=== PATIENT | male | born 1960 | race American Indian/Alaskan Native ===

== ENCOUNTER 2017-10-02 07:00 | Day surgery (SDC) | payer BC ==
[2017-10-02] MEDS ORDERED: NACL 0.9% 1000 ML 1,000 ML IV SCH (08:01)
--- NOTE | 2017-10-02 08:01 | Anesthesia Consultation ---
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
--- NOTE | 2017-10-02 08:01 | Anesthesia Day of Surgery ---
Anesthesia Day of Surgery - Day of Surgery Patient Examined: Yes Patient H&P Reviewed: Yes Patient is NPO: Yes
[2017-10-02] MEDS ORDERED: PEPCID IV NR (08:04)
[2017-10-02] MEDS ORDERED: ANCEF/STERILE WATER 2 GM/20 ML IV NR (09:00)
[2017-10-02] MEDS ORDERED: XYLOCAINE 1% 20 mL ONE (09:40)
[2017-10-02] MEDS ORDERED: MARCAINE 0.25% INFILTRATI ONE ×3 (09:40→10:13)
[2017-10-02] MEDS ORDERED: XYLOCAINE MPF 2% ONE ×2 (09:43→09:46)
[2017-10-02] MEDS ORDERED: VERSED IV ONE (09:43)
[2017-10-02] MEDS ORDERED: DIPRIVAN 10 MG/ML IV ONE ×3 (09:43→10:46)
[2017-10-02] MEDS ORDERED: DILAUDID ONE (09:48)
[2017-10-02] MEDS ORDERED: XYLOCAINE 1%/ EPI 1:100,000 INFILTRATI ONE ×2 (10:13)
--- NOTE | 2017-10-02 11:31 | Short Stay Summary ---
Short Stay Documentation Date of service: 10/02/17 - History Principal diagnosis: multiple soft tissues masses of face and neck H&P: obtained from office - Allergies and Medications Current Medications: Allergies No Known Allergies Allergy (Verified 09/27/17 15:29) Home Medications Medication Instructions Recorded Confirmed Last Taken Type Lisinopril/Hydrochlorothiazide 1 each PO DAILY 08/29/17 10/02/17 10/01/17 09:00 History [Zestoretic 10-12.5 mg Tablet] Verapamil ER [Calan Sr] 180 mg PO DAILY 08/29/17 10/02/17 10/02/17 06:00 History Ibuprofen 800 mg PO Q8H PRN #30 tablet 10/02/17 Unknown Rx Active Medications Cefazolin Sodium (Ancef/Sterile Water 2 Gm/20 Ml) 2 gm IV PREOP NR Stop: 10/02/17 12:00 Famotidine (Pepcid) 20 mg IV PREOP NR Stop: 10/02/17 12:00 Last Admin: 10/02/17 08:34 Dose: 20 mg Sodium Chloride (Nacl 0.9% 1000 Ml) 1,000 mls @ 100 mls/hr IV DIRECT MEG Stop: 10/02/17 23:59 Last Admin: 10/02/17 08:33 Dose: 100 mls/hr - Brief post op/procedure progress note Date of procedure: 10/02/17 Pre-op diagnosis: multiple soft tissue masses face and neck Post-op diagnosis: same Procedure: excision of multiple soft tissue masses head and neck Anesthesia: MAC, local Findings: 4 cysts: 1. Left neck: 2 cm 2. Right neck: 1 cm 3. Right scalp: 2 cm 4. Right face: 2cm Surgeon: WINSOME ALLISON Estimated blood loss: minimal Pathology: list (soft tissue masses (see findings)) Specimen disposition: to lab Condition: stable - Hospital course Hospital course: Patient was observed in the PACU and discharged home when criteria was met. - Disposition Condition at discharge: Good Disposition: - TO HOME OR SELFCARE - Discharge Diagnoses (1) Soft tissue mass Status: Acute Short Stay Discharge Plan Activity: other Diet: regular Wound: open to air, other (Do not submerge incisions in water. May shower tomorrow, do not scrub incisions) Additional Instructions: Call surgeon's office if you have fevers >100.4, pain not controlled with pain medications, drainage/swelling around incisions. Follow up with: NEVIN LIRIANO MD [Primary Care Provider] - 7 Days WINSOME ALLISON DO [Staff Physician] - 7 Days Prescriptions: Ibuprofen 800 mg PO Q8H PRN #30 tablet PRN Reason: Pain
[2017-10-02 13:07] VITALS: BP 141/84
--- NOTE | 2017-10-02 14:45 | Operative Report ---
Operative Report Operative Report: Date of operation: 10/02/2017 Preoperative diagnosis: Multiple soft tissue masses of head and neck Postoperative diagnosis: Multiple cysts of the head and neck Procedure performed: Excision of soft tissue masses of head and neck Surgeon: Sarah Redman DO Anesthesia: Mac, local Findings: 4 cysts Specimen: 1. Left neck: 2 cm 2. Right neck: 1 cm 3. Right scalp: 2 cm 4. Right face: 2cm Estimated blood loss: Less than 10 mL Consultations: None Disposition: Stable to PACU HPI an indication: Patient is a 57-year-old male who presented to the surgical office with complaints of multiple soft tissue masses of his head and neck. The patient elected to have these masses removed because they're becoming larger. All the risks of surgery were discussed with the patient, questions answered, consent was signed. Procedure in detail: The patient was identified in the preoperative area, taken back to the operating room, placed on table in supine position. After anesthesia was induced the left face and neck were prepped and draped in usual sterile fashion and timeout was performed. A mixture of 50/50 1% lidocaine and 0.25% Marcaine was injected in the skin over the intended incision site. A elliptical incision was made in the skin over soft tissue mass using a 15 blade. Dissection was carried down to the skin and subcutaneous tissue using the 15 blade until the cyst wall was encountered. Then using tenotomy scissors , the cyst was circumferentially dissected free from the surrounding tissues. The cyst measured approximately 2 cm and it was passed off the table as a specimen. The wound was irrigated and hemostasis achieved using electrocautery. The deep dermal layer was closed with an interrupted 3-0 Vicryl stitch and the skin was closed using running 4-0 Monocryl subcuticular stitches and skin glue. I then turned my attention to the 3 remaining soft tissue masses on the right side of the head and neck. The right scalp, face and neck were prepped and draped in usual sterile fashion. I first started with the smaller mass on the right neck. Local anesthetic was infiltrated into the skin. A 1 cm incision was made over the mass using a 15 blade. Dissection was carried down through the skin and subcutaneous tissue with the knife and the cyst was then dissected free from the surrounding tissues using tenotomy scissors. The cyst measured 1 cm, and was passed off the table as a specimen. The wound was irrigated and hemostasis achieved. The skin was closed with 4-0 Monocryl subcuticular stitch and skin glue. Next, I removed the cysts of the right face and then the right scalp. Local anesthetic was infiltrated into the skin and an elliptical incision was made in the skin around the central opening of the cyst. The remainder of the dissection was performed in a similar fashion to the other cysts. The cyst of the right face measured 2 cm cyst of the right scalp measured 2 cm. Both wounds were irrigated and hemostasis ensured. The deep dermal layers were closed with 3-0 Vicryl interrupted stitches and the skin was closed with running 4-0 Monocryl subcuticular stitches and skin glue. At the end of the case, all sponge, instrument, sharp counts were correct 2. The patient was awoken from anesthesia, and taken to PACU in stable condition.
== END 2017-10-02 12:50 | disposition home or self-care (01) ==
LOC: OR 07:00
PROVIDERS: ATTEND Surgery
DX: M79.89 Other specified soft tissue disorders (principal); I10 Essential (primary) hypertension; Z87.891 Personal history of nicotine dependence
CPT/HCPCS: 21012; 21552; 36415; 84132; 88304; J1170; J2250; J2704; J7030; 88305; 88307